=== PATIENT | male | born 2000 | race Two or more races ===

== ENCOUNTER 2024-11-25 00:10 | Emergency (ER) | payer OTHER ==
[~2024-11-25] VITALS: Ht 170.2 cm; Wt 64.0 kg
[2024-11-25] MEDS ORDERED: AMOX875T4 PO (00:32)
--- NOTE | 2024-11-25 00:32 | ED.PDOC ---
History of Present Illness(SKN HPI Comments 23 year old male presents to ER with complaints of snake bite x 1 day. Patient states he was bit by a "pet garter snake" approximately 4-5 hours prior to arrival to ER on his right index finger. Patient presents to ER with a <.5 cm abrasion noted to right index finger without any signs of infection noted. Denies any pain, denies use of medications for current symptoms and is unsure when his last tetanus shot was. Patient presents to ER ambulatory on arrival, with steady gait, in no distress with vitals stable. Denies fever, n/v, shortness of breath, chest pain, palpitations, numbness/tingling or any further symptoms/complaints Chief Complaint: Animal Bite Time Seen by MD: 00:26 Primary Care Provider: UNKNOWN History of Present Illness: Nurses Notes, Medications, Allergies Allergies: Coded Allergies: NO KNOWN ALLERGIES (Unverified , 11/25/24) Home Meds Active Scripts Amoxicillin & Pot Clavulanate (Amoxicillin/Potassium Cla) 875 Mg Tab, 1 TAB PO BID for 7 Days, #14 TAB 0 Refills Prov:KINGSLEY MEDINA 11/25/24 Information Source: Patient Mode of Arrival: Ambulatory Tetanus: Unknown Past Medical History PAST MEDICAL HISTORY: Denies Surgical History: Denies all surgeries Family History Family History: Unknown Social History Smoker: Non-Smoker Alcohol: Denies ETOH Use Drugs: Denies Drug Use Lives In: Home Constitutional: denies: chills, diaphoresis, fatigue, fever, malaise, sweats, weakness, others EENTM: denies: blurred vision, double vision, ear bleeding, ear discharge, ear drainage, ear pain, ear ringing, eye pain, eye redness, hearing loss, mouth pain, mouth swelling, nasal discharge, nose bleeding, nose congestion, nose pain, photophobia, tearing, throat pain, throat swelling, voice changes, others Respiratory: denies: cough, hemoptysis, orthopnea, SOB at rest, shortness of breath, SOB with excertion, stridor, wheezing, others Cardiovascular: denies: chest pain, dizzy spells, diaphoresis, Dyspnea on exertion, edema, irregular heart beat, left arm pain, lightheadedness, palpitations, PND, syncope, others Gastrointestinal: denies: abdomen distended, abdominal pain, blood streaked bowels, constipated, diarrhea, dysphagia, difficulty swallowing, hematemesis, melena, nausea, poor appetite, poor fluid intake, rectal bleeding, rectal pain, vomiting, others Genitourinary: denies: burning, dysuria, flank pain, frequency, hematuria, incontinence, penile discharge, penile sore, pain, testicle pain, testicle swelling, urgency, others Neurological: denies: dizziness, fainting, headache, left sided numbness, left sided weakness, numbness, paresthesia, pre-existing deficit, right sided numbness, right sided weakness, seizure, speech problems, tingling, tremors, weakness, others Musculoskeletal: denies: back pain, gout, joint pain, joint swelling, muscle pain, muscle stiffness, neck pain, others Integumetry: reports: others (As stated in HPI) Allergic/Immunocompromised: denies: Difficulty Healing, Frequent Infections, Hives, Itching, others Hematologic/Lymphatic: denies: anemia, blood clots, easy bleeding, easy bruising, swollen glands, others Endocrine: denies: excessive hunger, excessive sweating, excessive thirst, excessive urination, flushing, intolerance to cold, intolerance to heat, unexplained weight gain, unexplained weight loss, others Psychiatric: denies: anxiety, bipolar disorder, depression, hopeless, panic disorder, schizophrenia, sleepless, suicidal, others Physical Exam General Appearance: No Apparent Distress HEENT: PERRL/EOMI Neck: Full Range of Motion, Non-Tender, Normal Respiratory: Chest Non-Tender, Lungs Clear, No Accessory Muscle Use, No Respiratory Distress, Normal Breath Sounds Cardiovascular: No Murmur, No Gallop, Regular Rate/Rhythm Breast Exam: Deferred Gastrointestinal: NOT DONE Genitalia: Deferred Pelvic: Deferred Rectal: Deferred Extremities: Normal capillary refill, Normal range of motion Neurologic: Alert, No Motor Deficits, Normal Affect, Normal Mood, No Sensory Deficits Cerebellar Function: Normal Reflexes: Normal Skin: Dry, Warm, Other (<.5 cm abrasion noted to right index finger without any foreign body/ signs of infection noted. Patient able to fully move all fingers right hand. Pulses intact) Peripheral Pulses: 2+ dorsalis pedis (L), 2+ Radial (L), 2+ Brachial (R), 2+ Brachial (L) Lymphatic: No Adenopathy Was a procedure done? Was a procedure done?: No Sedation Sedation?: No Differential Diagnosis (INTG) Differential Diagnosis: Neurovascular Injury Differential Diagnosis: Cellulitis, Retained Foreign Body, Other (Anaphylaxis) X-Ray, Labs, Meds, VS Vital Signs Date Time Temp Pulse Resp B/P (MAP) Pulse Ox O2 Delivery O2 Flow Rate FiO2 11/25/24 00:20 98.9 87 18 137/78 (97) 97 98.9 Tdap 0.5 mL IM ordered Patient in no distress during ER visit/prior to discharge Wound care/cleaning discussed and advised Advised to follow up with PCP in 1-2 days Patient verbalized understanding and agreeable with current plan of care Advised to return to ER immediately if symptoms worsen Time of 1ST Reevaluation: 00:14 Reevaluation 1ST: N/A Patient Education/Counseling: Diagnosis, Treatment, Prognosis, Need For Follow Up Family Education/Counseling: No Family Present SEPSIS Sepsis Screen Vital Signs Date Time Temp Pulse Resp B/P (MAP) Pulse Ox O2 Delivery O2 Flow Rate FiO2 11/25/24 00:20 98.9 87 18 137/78 (97) 97 98.9 Departure 1 Departure Time of Disposition: 00:30 Impression: Primary Impression: Snake bite Qualified Codes: W59.11XA - Bitten by nonvenomous snake, initial encounter Disposition: HOME / SELF CARE / HOMELESS Condition: Stable e-Prescriptions Amoxicillin & Pot Clavulanate (Amoxicillin/Potassium Cla) 875 Mg Tab 1 TAB PO BID for 7 Days, #14 TAB 0 Refills Prov: KINGSLEY MEDINA 11/25/24 Discharged With: Self Critical Care Note Critical Care Time?: No Stability Stability form required: No Heart Score Heart Score: Heart Score Response (Comments) Value History N/A 0 EKG N/A 0 Age N/A 0 Risk Factors N/A 0 Troponin N/A 0 Total 0 KINGSLEY MEDINA Nov 25, 2024 00:32
[2024-11-25 01:00] VITALS: BP 137/78; PULSE 80; RESP 19; TEMP 98.3
[2024-11-25] MEDS: TETANUS-DIPTH-ACEL PERTUSSIS 0.5ML SYR Tdap IM ONE (01:01)
[2024-11-25 01:09] VITALS: O2SAT 98
== END 2024-11-25 01:06 | disposition home or self-care (01) ==
LOC: ER 00:10
DX: S60.410A Abrasion of right index finger, initial encounter (principal); T63.001A Toxic effect of unspecified snake venom, accidental (unintentional), initial encounter; Y92.89 Other specified places as the place of occurrence of the external cause
CPT/HCPCS: 90471; 90715